=== PATIENT | female | born 1965 ===

== ENCOUNTER 2021-11-26 21:05 | Emergency (ER) | payer OTHER, SELFPAY ==
--- NOTE | 2021-11-26 21:15 | DI.CT_ITS ---
Exam(s) CT RENAL COLIC WO EXAM: CT RENAL COLIC WO CLINICAL HISTORY: lower abdomen pain radiating to the back. TECHNIQUE: Imaging Protocol: Axial computed tomography images with coronal and sagittal reformatted images were created and reviewed. COMPARISON: No exams were available for comparison FINDINGS: ABDOMEN: Lung Bases: Mild dependent atelectasis is present. There is a small hiatal hernia. Surgical changes are seen at the gastroesophageal junction. Liver: Normal density. No measurable mass. Gallbladder and biliary tract: Status post cholecystectomy. No biliary ductal dilatation. Pancreas: Normal density, no abnormal calcifications or inflammatory process. Spleen: Normal. Kidneys: Normal size, contour and axis.No radiodense stones or obstructive uropathy. No masses seen. Adrenal glands: No mass is seen. Lymph nodes: Within normal limits. Abdominal Aorta: Abdominal portion non-dilated. PELVIS: Bladder:Symmetric distention, no gross wall thickening. Bowel: There is bowel wall thickening seen in the mid sigmoid colon with associated diverticula. Per icolonic inflammatory changes are seen. The findings are most suspicious for acute diverticulitis. No evidence of bowel obstruction. No evidence of acute appendicitis. Peritoneal cavity: There is a trace amount of free fluid in the dependent portion of the pelvis. No free air. Reproductive organs: Status post hysterectomy. Bones: Within normal limits. Soft Tissues: Within normal limits. IMPRESSION: 1. Findings suggestive of acute diverticulitis involving the sigmoid colon. Follow-up colonoscopy sh ould be considered in this patient to exclude underlying mass. 2. No evidence of nephrolithiasis or hydronephrosis. RADIATION DOSE DELIVERED: 1,080.13mGy.cm Total DLP DATA REPOSITORY: All CT scans at this facility are submitted to the National Radiology Data Registry (NRDR) Dose Index Registry (DIR) with the [employer] ([employer]). RADIATION OPTIMIZATION: All CT scans at this facility use at least one of these dose optimization te chniques: automated exposure control; mA and/or kV adjustment per patient size (includes targeted exa ms where dose is matched to clinical indication); or iterative reconstruction.
[2021-11-26 21:17] VITALS: BP 137/69; PULSE 114; RESP 18; TEMP 36.7; O2SAT 96
--- NOTE | 2021-11-26 21:30 | ED.GENADUL_ITS ---
Discharge Plan Disposition Patient Disposition: HOME Condition: Stable Discharge Details Clinical Impression: Fever, Abdominal pain, UTI (urinary tract infection), Diverticulitis Primary Care Provider: [facility] Provider: Roque Dumont Home Meds and New Rx's Prescriptions: New metronidazole 500 mg tablet 500 mg PO Q8H Qty: 21 0RF ciprofloxacin HCl 500 mg tablet 500 mg PO BID Qty: 14 0RF ondansetron 4 mg tablet,disintegrating 4 mg PO Q8H PRN (Reason: nausea and vomiting) Qty: 30 0RF Continued acetaminophen 500 mg Tablet 500 mg PO Q6H PRN Discharge Instructions Instructions: Diverticulitis (ED) Additional Instructions: if not better in a week follow up with your primary care provider you can take 1000mg tylenol and 600mg ibuprofen every 6 hours as needed, do not exceed 3000mg of tylenol in a 24 hour period if you feel more ill, have severe worsening pain or persistent vomiting return to the emergency department Medical Decision Making 56 yo female who denies chronic medical problems, states she has had a prior cholecystectomy and hysterectomy, comes in with chief complaint of lower abdomen pain and chills starting this morning. She denies having symptoms like this in the past and felt well yesterday. She has had a few insect bites and is not sure what insect bit her. She has a 4cm mildly erythematous not warm to touch circular lesion that appears to be a hive on her right upper abdomen that is not warm to touch and has what appears to be an insect bite in the middle of it. She has tenderness in the lower abdomen both rlq, llq and suprapubic and states it radiates to the back. She is having rigors during exam, initial temp normal but was done temporally, oral temp is 39.1. given her fevers and lower abdomen symptoms concern for possible diverticulitis, pyelo, infected kidney stone among other pathologies, will obtain labs including cbc, cmp, lactate, procalcitonin and obtain ct renal colic to further evaluate. Blood cultures also ordered and will also send tick panel given her rash on her abdomen and reported insect bites. pt's lab work reassuring with mild leukocytosis to 13 and reassuring lactate and procalcitonin. Ua suspicious for infection and given fever will treat as pyleo with dose of ceftriaxone. She feels better, awaiting CT scan results pt stable and feels better tolerating po, has minimal llq tenderness without guarding. CT shows diverticulitis without abscess or perforation. She states she has had a routine colonoscopy and was told she had diverticula no other concerning findings. She is stable for d/c, will start her on cipro and flagyl to cover diverticulitis and a uti. She will f/u with pcp if not improving in a week and return precautions given Differential Diagnosis Differential Diagnosis: pyelo, diverticulitis, lyme, tick born illness Imaging Data Radiologic Study: Attestation: I personally reviewed and interpreted this imaging study as follows: Imaging: CT Scan Radiologist's impression: MPRESSION: Proximal sigmoid diverticulitis without gross perforation or abscess. Follow-up colonoscopy recommended if not already performed to exclude underlying lesion Lab Data Lab results reviewed: Yes I reviewed the patient's lab results. HPI General Mode of arrival: ambulatory . Date/Time Provider Initiated Documentation: 11/26/21 21:07 . Limitations to Documentation: no limitations . Information obtained by: patient . History of Present Illness 56 year old F presents to the emergency department with the chief complaint of lower abdomen discomfort, described as moderate, Patient started experiencing this day(s) (1) and it has been intermittent. No relieving factors improve symptom(s), No exacerbating factors reported . Patient notes fever/chills. Patient did receive the following treatments prior to arrival, none Related Data Home Medications Medication Instructions Recorded Confirmed acetaminophen 500 mg tablet 500 mg PO Q6H PRN 11/26/21 11/26/21 ciprofloxacin HCl 500 mg tablet 500 mg PO BID #14 tabs 11/27/21 metronidazole 500 mg tablet 500 mg PO Q8H #21 tabs 11/27/21 ondansetron 4 mg disintegrating 4 mg PO Q8H PRN nausea and 11/27/21 tablet vomiting #30 tabs Previous Rx's Medication Instructions Recorded ciprofloxacin HCl 500 mg tablet 500 mg PO BID #14 tabs 11/27/21 metronidazole 500 mg tablet 500 mg PO Q8H #21 tabs 11/27/21 ondansetron 4 mg disintegrating 4 mg PO Q8H PRN nausea and 11/27/21 tablet vomiting #30 tabs Allergies Allergy/AdvReac Type Severity Reaction Status Date / Time No Known Allergies Allergy Unverified 11/26/21 21:21 General Stated Complaint: Urinary ANDI: 3 Review of Systems All systems reviewed & are unremarkable except as noted in HPI and below Constitutional Constitutional: Denies weakness Cardiovascular Cardiovascular: Denies chest pain and Denies dyspnea Respiratory Respiratory: Denies cough and Denies dyspnea Gastrointestinal Gastrointestinal: Denies vomiting Genitourinary Genitourinary: Denies dysuria Neurologic Neurologic: Denies weakness PFS All Active Problems (Updated 11/27/21 @ 00:25 by Roque Dumont MD) Fever (Acute) Abdominal pain (Acute) UTI (urinary tract infection) (Acute) Diverticulitis (Chronic) Social History Smoking/Tobacco Use Status: Never Smoking risk assessment performed?: Yes Alcohol Intake: current Alcohol Intake frequency: a few times a month Alcohol type: other Drug use: Never Substance use type: does not use Details: Drinks hard cider. Do you feel safe at home: Yes Do you feel safe in your relationship?: Yes Exam Const General: other (intermittent rigors) Orientation: alert and oriented x3 HENMT Head: normal to inspection Ears: external ears normal General nose exam: external nose normal Mouth: moist mucous membranes Eyes General: appearance normal, both eyes and all related structures Neck Neck: normal visual inspection Resp Effort & Inspection: normal respiratory effort and able to speak in complete sentences Cardio Rate: regular rate GI Palpation: soft and tender Skin General skin exam: no rashes or lesions noted Neuro General: patient alert and patient oriented x3 Extrem General: normal to inspection Psych Mental Status: mental status grossly normal Course Vital Signs Vital signs: Vital Signs Temperature 36.7 C 11/26/21 21:17 Pulse 114 H 11/26/21 21:17 Respiratory Rate 18 11/26/21 21:17 Blood Pressure 137/69 11/26/21 21:17 Pulse Oximetry 96 11/26/21 21:17 Temperature 36.7 C 11/26/21 21:17 Temperature Source Skin 11/26/21 21:17 Pulse 114 H 11/26/21 21:17 Respiratory Rate 18 11/26/21 21:17 Respiratory Effort Non-Labored 11/26/21 21:22 Blood Pressure 137/69 11/26/21 21:17 Blood Pressure Position Sitting 11/26/21 21:17 Pulse Oximetry 96 11/26/21 21:17 Oxygen Delivery Method Room Air 11/26/21 21:17 Oxygen Flow Rate 0 11/26/21 21:17 Pain Level 8 11/26/21 21:22 Lab/Test Results Lab/Test Results: 11/26/21 21:15 Urine - Clean Catch Urine Culture - Pending PAWSS Have you Been Recently Intoxicated or Drunk Within the Last 30 days?: No Have you Ever Experienced Previous Episodes of Alcohol Withdrawal?: No Have you ever Experienced Withdrawal Seizures?: No Have you ever Experienced Delirium Tremens(DT)s?: No Have you ever undergone Alcohol Rehabilitation Treatment (i.e, inpt ot outpatient treatment programs)?: No Have you ever Experienced Blackouts?: No Have you ever Combined Alcohol with other Downers within the last 90 days?: No Have you ever Combined Alcohol with any other Substance of Abuse during the last 90 days?: No Positive Blood Alcohol level on Presentation? [PCS.BAL]: No Evidence of Increased Autonomic Activity (i.e. HR>120, tremor, sweating, agitation, nausea)?: No Result: 0
[2021-11-26 21:31] VITALS: TEMP 39.1
[2021-11-26 21:34] LABS: Bilirubin Negative (Negative); Blood Trace-intact (Negative); Clarity Clear (Clear); Glucose Negative (Negative); Ketones 15 mg/dL (Negative); Leukocyte Esterase Trace (Negative); Nitrite Negative (Negative); Specific Gravity 1.025 (1.005-1.025); Urobilinogen 0.2 EU/dL (Up TO 0.2); pH 6.5 (5-8)
[2021-11-26 21:43] LABS: Bacteria Few HPF (Negative); C & S Indicated? No/Sq. Contamination; Crystals Negative HPF (Negative); Epithelial Cells Many HPF (Negative); Mucus Trace (Negative); RBC 0-2 HPF (0-2)
[2021-11-26 21:51] VITALS: TEMP 39.1
[2021-11-26] MEDS: Ketorolac 15 MG/ML VIAL IVP (21:51)
[2021-11-26] MEDS: Normal Saline 1,000 ML 1000 ML IV (21:52)
[2021-11-26 21:53] LABS: Lactate 0.6 mmol/L (0.6-1.4)
[2021-11-26 21:55] LABS: Abs Immature Grans 0.05 10^3/uL (0.0-0.06); Absolute Basophil Count 0.04 10^3/uL (0.0-0.2); Absolute Eosinophil Count 0.05 10^3/uL (0.0-0.7); Absolute Lymphocyte Count 1.97 10^3/uL (1.2-3.4); Absolute Monocyte Count 1.16 10^3/uL (0.1-0.8); Absolute Neutrophil Count 10.19 10^3/uL (1.2-6.7); Basophils % 0.3; Eosinophils % 0.4; HCT 35.6 % (36.0-46.0); HGB 11.5 g/dL (11.2-15.7); Immature Grans % 0.4; Lymphocytes % 14.6; MCH 29.3 pg (27.0-33.0); MCHC 32.3 % (32.0-36.0); MCV 91 fL (80-95); MPV 8.8 fL (8.0-11.0); Monocytes % 8.6; Neutrophils % 75.7; Platelet Count 258 10^3/uL (130-400); RBC 3.93 10^6/uL (3.93-5.22); RDW-SD 43.2 fL; WBC 13.46 10^3/uL (4.4-10.8)
[2021-11-26 22:11] LABS: Source Nasal/Nares
[2021-11-26 22:25] LABS: ALT 22 U/L (14-59); AST 14 U/L (15-37); Albumin 3.8 g/dL (3.4-5.0); Alkaline Phosphatase 55 U/L (46-116); Anion Gap 8.5 mmol/L (3-11); BUN 9 mg/dL (7-18); Bilirubin, Direct 0.2 mg/dL (0.0-0.2); Bilirubin, Total 0.8 mg/dL (0.2-1.0); CO2 26.5 mmol/L (21.0-32.0); CREATININE 0.6 mg/dL (0.55-1.02); Calcium 8.7 mg/dL (8.5-10.1); Chloride 100 mmol/L (98-107); Glucose 114 mg/dL (74-106); Magnesium 1.8 mg/dL (1.8-2.4); Potassium 3.3 mmol/L (3.5-5.1); Sodium 135 mmol/L (136-145); TSH (W/Ref FT4) 0.41 uIU/mL (0.36-3.74); Total Protein 7.3 g/dL (6.4-8.2)
[2021-11-26 22:28] LABS: Procalcitonin < 0.1 ng/mL
[2021-11-26 22:54] VITALS: BP 110/66; PULSE 97; RESP 16; TEMP 37.9; O2SAT 97
[2021-11-26 23:14] LABS: COVID-19 PCR Negative (Negative)
--- NOTE | 2021-11-27 00:15 | DI.VRAD_ITS ---
PROCEDURE INFORMATION: Exam: CT Abdomen And Pelvis Without Contrast Exam date and time: 11/26/2021 10:37 PM Age: 56 years old Clinical indication: Other: Lower abdomen pain radiating to the back; Prior surgery; Surgery date: 6+ months; Surgery type: Partial hysterotomy TECHNIQUE: Imaging protocol: Computed tomography of the abdomen and pelvis without contrast. Radiation optimization: All CT scans at this facility use at least one of these dose optimization techniques: automated exposure control; mA and/or kV adjustment per patient size (includes targeted exams where dose is matched to clinical indication); or iterative reconstruction. COMPARISON: No relevant prior studies available. FINDINGS: Liver: No mass. Gallbladder and bile ducts: Prior cholecystectomy. No ductal dilation. Pancreas: No ductal dilation. Spleen: No splenomegaly. Adrenal glands: No mass. Kidneys and ureters: No hydronephrosis. Stomach and bowel: Colonic diverticulosis noted with superimposed luminal narrowing/inflammatory change in the proximal sigmoid colon No obstruction. Postsurgical changes in the stomach and gastroesophageal junction Appendix: No evidence of appendicitis. Intraperitoneal space: No free air. No significant fluid collection. Vasculature: No abdominal aortic aneurysm. Lymph nodes: No enlarged lymph nodes. Urinary bladder: Unremarkable as visualized. Reproductive: Prior hysterectomy Bones/joints: Unremarkable. No acute fracture. Soft tissues: Unremarkable. IMPRESSION: Proximal sigmoid diverticulitis without gross perforation or abscess. Follow-up colonoscopy recommended if not already performed to exclude underlying lesion Dictated and Authenticated by: Jason Monique MD. Ordering:VERNA Nevarez MD
[2021-11-27 00:33] VITALS: BP 118/70; PULSE 90; RESP 16; TEMP 37.6; O2SAT 97
[2021-11-27] MEDS: Ondansetron O.D.T. 4 MG TABEF, 3 TABS/BTL PO (00:33)
[2021-11-27 00:50] VITALS: BP 118/70; PULSE 90; RESP 16; TEMP 37.6; O2SAT 97
[2021-11-28 11:00] LABS: Lyme Ab w Rflx to Lyme Confirm Negative (Negative)
[2021-11-30 04:57] LABS: Anaplasma phagocytophilum Negative (Negative); B. miyamotoi PCR Negative (Negative); Babesia divergens/MO-1 Negative (Negative); Babesia duncani Negative (Negative); Babesia microti Negative (Negative); Ehrlichia chaffeensis Negative (Negative); Ehrlichia ewingii/canis Negative (Negative); Ehrlichia muris eauclairensis Negative (Negative)
== END 2021-11-27 00:33 | disposition home or self-care (01) ==
PROVIDERS: Emergency Provider Emergency Medicine
DX: R50.9 Fever, unspecified (principal); R10.9 Unspecified abdominal pain; N39.0 Urinary tract infection, site not specified; K57.32 Diverticulitis of large intestine without perforation or abscess without bleeding
CPT/HCPCS: 80053; 84145; 87040; 87635; 87798; 96361; 96365; 96375; 99284; 74176; 81003; 81015; 82248; 83605; 83735; 84443; 85025; 86618; 87086; J0696; J1885